=== PATIENT | male | born 1935 | race Caucasian/White ===

== ENCOUNTER 2017-11-05 15:13 | Emergency (ER) | payer MEDICARE, OTHER ==
[2017-11-05 15:21] VITALS: RESP 24; TEMP 100.1
[2017-11-05 16:04] LABS: BASOPHILS % (AUTO) 0 % (0-3); EOSINOPHILS % (AUTO) 0 % (0-9); HEMATOCRIT 42 % (39-53); HEMOGLOBIN 13.7 gm/dl (13.5-17.7); LYMPHOCYTES % (AUTO) 12.3 % (10-50); MEAN CORPUSCULAR HEMOGLOBIN 27.6 pg (27.0-32.0); MEAN CORPUSCULAR HGB CONC 32.6 gm/dl (32.0-36.0); MEAN CORPUSCULAR VOLUME 84 fL (80-100); NEUTROPHILS % (AUTO) 74.9 % (37-80)
[2017-11-05 16:15] LABS: ALBUMIN 3.1 gm/dl (3.4-5.0); BILIRUBIN,TOTAL 0.6 mg/dl (0.2-1.0); CALCIUM 8.1 mg/dl (8.5-10.1); CARBON DIOXIDE 28.7 mEq/L (21-32); CREATININE 1.04 mg/dl (0.80-1.30); POTASSIUM 3.6 mMol/L (3.5-5.1); TOTAL PROTEIN 7.1 gm/dl (6.4-8.2)
[2017-11-05 16:32] LABS: APPEARANCE,URINE Cloudy; BILIRUBIN,URINE NEGATIVE (NEGATIVE); COLOR,URINE Yellow; GLUCOSE, URINE (UA) NEGATIVE (NEGATIVE); KETONES,URINE NEGATIVE (NEGATIVE); LEUKOCYTE ESTERASE ,URINE 3+ (NEGATIVE); NITRATE,URINE POSITIVE (NEGATIVE); OCCULT BLOOD,URINE 2+ (NEG-TRACE); PH,URINE 7.5
[2017-11-05] MEDS ORDERED: ACETAMINOPHEN 500 MG 500 MG TAB PO ONE (16:32)
[2017-11-05] MEDS ORDERED: LEVOFLOXACIN 500 MG TAB PO ONE (16:32)
[2017-11-05] MEDS ORDERED: LEVOFLOXACIN 500 MG TAB ONE (16:32)
[2017-11-05] MEDS ORDERED: ACETAMINOPHEN 500 MG 500 MG TAB ONE (16:33)
[2017-11-05 16:48] LABS: BACTERIA 3+ (< 1+); CRYSTALS 1-3 TRIPLE PHOSPHATE (0-3 AVE/HPF); EPITHELIAL CELLS NEGATIVE (SQUAMOUS); WBC,URINE 80-120 (0-5AV/HPF)
[2017-11-05 18:13] VITALS: BP 118/67; PULSE 76; O2SAT 94
== END 2017-11-05 18:07 | disposition home or self-care (01) | DRG 699 ==
LOC: ED 15:13
DX: T83.510A Infection and inflammatory reaction due to cystostomy catheter, initial encounter (principal); N39.0 Urinary tract infection, site not specified
CPT/HCPCS: 36415; 80053; 81001; 85025; 87088; 99283; A9270-GY